=== PATIENT | female | born 1955 | race Caucasian/White ===

== ENCOUNTER → 2025-07-08 13:44 | Outpatient (CLI) | payer MEDICARE, OTHER, SELFPAY ==
[2025-07-08 14:54] LABS: Add Manual Diff / Slide Review NO; Hematocrit 38.2 % (36-46); Hemoglobin 13.0 g/dL (12.0-16.0); Lymphocytes Absolute Auto 2100 /uL (1100-4500); Mean Corpuscular HGB Conc 34.1 % (30-36); Mean Corpuscular Hemoglobin 30.8 PG (26-34); Mean Corpuscular Volume 90.4 fL (80-100); Platelet Count 163 X10^3/uL (150-400)
[2025-07-08 15:17] LABS: Alanine Aminotransferase 15 IU/L (<35); Albumin 4.5 g/dL (3.5-5.0); Albumin Globulin Ratio 1.8 (1.0-2.8); Alkaline Phosphatase 80 U/L (38-126); Blood Urea Nitrogen 14 mg/dL (7-17); Calcium 9.2 mg/dL (8.4-10.2); Carbon Dioxide 26 mmol/L (22-32); Chloride 101 mmol/L (98-107); Cholesterol 211 mg/dL (140-199); Estimated Glomerular Filt Rate > 60 mL/min (>60); Globulin 2.5 g/dL (1.7-4.1); Glucose 85 mg/dL (70-99); HDL Cholesterol 78 mg/dL (40-60); HEMOLYSIS < 15 (0-50); Potassium 4.4 mmol/L (3.4-5.1); Sodium 135 mmol/L (137-145); Total Protein 7.0 g/dL (6.3-8.2); Triglycerides 133 mg/dL (35-150)
== END ==
PROVIDERS: PCP Family Medicine; Referring Provider Family Medicine; Visit Provider Family Medicine
DX: I10 Essential (primary) hypertension (principal); Z76.89 Persons encountering health services in other specified circumstances; Z51.81 Encounter for therapeutic drug level monitoring; Z79.899 Other long term (current) drug therapy
CPT/HCPCS: 36415; 80053; 80061; 85025